=== PATIENT | male | born 1960 | race Caucasian/White ===

== ENCOUNTER 2017-03-15 07:27 | Day surgery (SDC) | payer BC ==
[~2017-03-15] VITALS: Ht 180.3 cm; Wt 88.5 kg
[2017-03-15] MEDS ORDERED: LISINOPRIL10 MG PO (07:49)
--- NOTE | 2017-03-15 07:49 | NUR ---
NO STAFF AVAILABLE TO GET PT STARTED. SHOWED HIM TO HIS RM, WELCOMED HIM. HE HAS HAD NUMEROUS SCOPES, SEEMED TO BE VERY AT EASE. HAD A PLEASANT VISIT, EXTENDED A BLESSING AND NOTIFIED STAFF OF HIS PRESENCE
--- NOTE | 2017-03-15 09:01 | NUR ---
03/15/17 0901 Nelli Colindres 0867 TO PACU, EASILY AWAKENED DENIES NEEDS. ENCOURAGED TO PASS GAS/
--- NOTE | 2017-03-15 11:19 | OR ---
[facility] [address], [place] [address] Signed DATE OF OPERATION: 03/15/2017 SURGEON: Varun Sterling MD PREOPERATIVE DIAGNOSIS: History of colonic polyps. POSTOPERATIVE DIAGNOSIS: Normal colon to cecum. PROCEDURE: Total colonoscopy to cecum. ANESTHESIA: Intravenous sedation, fentanyl 150 mcg, Versed 5 mg. INDICATION: This 56-year-old white man is a patient of Dr. Savage in [place], [place] and has had at least 4 colonoscopies in the past, all of them in [place]. 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 He is here for surveillance colonoscopy understand the risks of bleeding, infection, and perforation related to colonoscopy. Understand this, he wished to proceed. FINDINGS: The prep was good. Complete colonoscopy was undertaken to the cecum. There was no sign of polyp, though he did have few scattered diverticula of the sigmoid. DESCRIPTION OF PROCEDURE: The patient was brought to the endoscopy suite and placed in lateral decubitus position, given intravenous sedation to the point of slurred speech and nystagmus. Digital rectal examination was normal. An Olympus video colonoscope was passed in the rectum and manipulated throughout the colon. A few diverticula were seen in the sigmoid. The scope was ultimately advanced to the cecum, where the ileocecal valve appeared normal as did the appendiceal orifice. The scope was withdrawn from that point and examination throughout showed no sign of abnormality, specifically no polyps or colitis. The diverticula seen originally were also viewed once again upon withdrawal of scope in the sigmoid. Retroflexed view of the rectum was normal. The scope was removed. The patient was taken to the recovery room in good condition. Electronically Signed By: VARUN STERLING MD 03/15/17 1119 PATIENT NAME: JESSIE GLASS OPERATIVE REPORT DATE OF : 56 PHYSICIAN: VARUN STERLING MD REPORT #: [id number] REPORT IS CONFIDENTIAL AND NOT TO BE RELEASED WITHOUT AUTHORIZATION [facility] [address], [place] [address] Signed CONCLUDING DIAGNOSIS: Normal colon except for a few diverticula. PLAN: Recommend repeat colonoscopy in 5 years or sooner as if symptoms should occur. He will return to the ongoing care of Dr. Savage. Varun Streling MD JM/MODL /[id number] cc: Dr. Savage Electronically Signed By: VARUN STERLING MD 03/15/17 1119 PATIENT NAME: JESSIE GLASS OPERATIVE REPORT DATE OF : 56 PHYSICIAN: VARUN STERLING MD REPORT #: [id number] REPORT IS CONFIDENTIAL AND NOT TO BE RELEASED WITHOUT AUTHORIZATION
== END 2017-03-15 09:25 | disposition home or self-care (01) ==
LOC: OPS 07:27 → DS 07:27 → OPS 08:30 → DS 08:30 → OPS 09:25
PROVIDERS: Surgery
PROC: 0DJD8ZZ Inspection of Lower Intestinal Tract, Via Natural or Artificial Opening Endoscopic (ICD-10-PCS; principal; 2017-03-15 08:30)
DX: Z12.11 Encounter for screening for malignant neoplasm of colon (principal); K57.30 Diverticulosis of large intestine without perforation or abscess without bleeding; E11.9 Type 2 diabetes mellitus without complications; I10 Essential (primary) hypertension; E78.5 Hyperlipidemia, unspecified; G47.30 Sleep apnea, unspecified; F17.200 Nicotine dependence, unspecified, uncomplicated; Z86.010 Personal history of colon polyps; Z98.890 Other specified postprocedural states; Z79.899 Other long term (current) drug therapy; Z99.81 Dependence on supplemental oxygen
CPT/HCPCS: 99152; 99153; J2250; J3010; J7120